=== PATIENT | female | born 1975 | race Hispanic/Latino ===

== ENCOUNTER 2021-11-30 08:53 | Emergency (ER) | payer BC ==
[2021-11-30] MEDS ORDERED: NA CHLORIDE 0.9% 1,000 ML ONE (10:01)
[2021-11-30] MEDS ORDERED: ONDANSETRON 4 MG/2 ML VIAL ONE (10:01)
[2021-11-30 10:06] LABS: Absolute Lymphocytes (CBC) 0.7 K/uL (0.7-4.9); Hematocrit 42.1 % (36.0-45.0); Lymphocytes % 20.5 % (15.3-44.8); MPV 8.5 fL (7.6-11.3); RBC Red Blood Cell Count 4.66 M/uL (3.86-4.86)
--- OUTSIDE RECORDS SUMMARY | 2021-11-30 10:06 | XMS REPORT | Continuity of Care Document ---
:[address] [facility] t Address [address] [place] [address] Care Team Providers Name Role Phone Jose CHEUNG Primary Care Physician Unavailable RADIOLOGY Attending Clinician Unavailable Radiology Attending Clinician Unavailable Uma Brandt Attending Clinician Unavailable Payers Payer Name Policy Type Policy Number Effective Date Expiration Date S ource Problems Condition Condition Condition Status Onset Resolution Last Treating Co mments Source Name Details Category Date Date Treatment Clinician Date No known No known Disease Unive rs active active ity of problems problems [facility] Allergies, Adverse Reactions, Alerts Allergy Allergy Status Severity Reaction(s) Onset Inactive Treating Comm ents Source Name Type Date Date Clinician NO KNOWN Drug Active Univers ALLERGIE Class ity of S [facility] Social History Social Habit Start Date Stop Date Quantity Comments Source Sex Assigned At [facility] Medical Branch Exposure to Not sure [facility] SARS-CoV-2 (event) Medica l Branch Tobacco use and 2018-01-28 2018-01-28 Never used [facility] exposure 00:00:00 00:00:00 [facility] [place] Smoking Status Start Date Stop Date Source Never smoker [facility] Medications Ordered Filled Start Stop Current Ordering Indication Dosage Frequency Signature Comments Components Source Medication Medication Date Date Medication? Clinician (SIG) Name Name TEMAZEPAM Yes Take by Univ ers (RESTORIL 4-28 mouth. ity of ORAL) 22:18: [address] SERTRALINE Yes Take by Uni vers HCL (ZOLOFT 4-28 mouth. ity of ORAL) 22:18: [place] 18 Medical Branch TEMAZEPAM Yes Take by [facility] ers (RESTORIL 4-28 mouth. ity of ORAL) 22:18: [place] [address] Medical Branch SERTRALINE Yes Take by Uni vers HCL (ZOLOFT 4-28 mouth. ity of ORAL) 22:18: [place] [address] Medical Branch TEMAZEPAM Yes Take by [facility] ers (RESTORIL 4-28 mouth. ity of ORAL) 22:18: [place] [address] Medical Branch SERTRALINE Yes Take by Uni vers HCL (ZOLOFT 4-28 mouth. ity of ORAL) 22:18: [place] [address] Medical Branch acetaminoph Yes [id number] 10/04 Univers en-codeine 4-28 tab Every ity of 300-30 mg 00:00: 4hrs as [place] tablet 00 needed for Medical pain or Branch cough requiring narcotic acetaminoph Yes [id number] 10/04 Univers en-codeine 4-28 tab Every ity of 300-30 mg 00:00: 4hrs as [place] tablet 00 needed for Medical pain or Branch cough requiring narcotic acetaminoph Yes [id number] 10/04 Univers en-codeine 4-28 tab Every ity of 300-30 mg 00:00: 4hrs as [place] tablet 00 needed for Medical pain or Branch cough requiring narcotic Procedures Procedure Date / Time Performing Clinician Source Performed BI ULTRASOUND BREAST 2020-10-28 21:54:20 Tammy Chaves [facility] COMPLETE RIGHT Medical Branch BI DIAGNOSTIC MAMMOGRAM 2020-10-28 21:00:51 Tammy Chaves [facility] RIGHT Medical Branch CONSENT/REFUSAL FOR 2020-10-28 20:30:04 [facility] DIAGNOSIS AND TREATMENT [facility] Medical Branch ASSIGNMENT OF BENEFITS 2020-10-28 20:29:51 Doctor Umair, [facility] Derma Medical Branch RUST PATIENT FINANCIAL 2020-09-09 15:39:57 Doctor Umair, [facility] POLICY Derma Medical Branch NO SHOW OR MISSED 2020-09-09 15:39:44 Doctor Umair, [facility] APPOINTMENT POLICY Derma Medical Bran h ACKNOWLEDGEMENT CONSENT/REFUSAL FOR 2020-09-09 15:39:32 Doctor Unassigned, Unive [facility] DIAGNOSIS AND TREATMENT Derma Medical Branch ASSIGNMENT OF BENEFITS 2020-09-09 15:39:18 [facility] Encounters Start End Encounter Admission Attending Care Care Encounter Source Date/Time Date/Time Type Type Clinicians Facility Department ID 2022-02-19 2022-02-19 Outpatient R RADIOLOGY [facility] [id number] Univers 08:00:00 08:00:00 [id number] ity of [facility] 2020-10-28 2020-10-28 [facility] Radiology RUST [id number] Univers 14:37:17 23:59:00 Encounter [place] [id number] ity of [place] [id number] [facility] [id number] [place] 806 Branch 2020-10-28 2020-10-28 [facility] Radiology RUST [id number] Univers 14:30:00 14:36:00 Encounter [place] [id number] ity of [place] [id number] [facility] [id number] [place] 800 Branch 2020-10-28 2020-10-28 Outpatient R RADIOLOGY [facility] [id number] Univers 14:30:00 14:30:00 [id number] ity of [facility] 2020-10-28 2020-10-28 Outpatient R RADIOLOGY [facility] [id number] Univers 00:00:00 00:00:00 ity of [facility] 2020-09-09 2020-09-09 Hospital Radiology RUST [id number] Univers 09:00:00 23:59:00 Encounter [place] [id number] ity of [place] [id number] [facility] [id number] [place] 800 Branch 2020-09-09 2020-09-09 Outpatient R RADIOLOGY [facility] [id number] Univers 09:00:00 09:00:00 [id number] ity of [facility] 2020-09-09 2020-09-09 Outpatient R RADIOLOGY [facility] [id number] Univers 00:00:00 00:00:00 ity of [facility] 2020-06-17 2020-06-17 Outpatient KEI Brandt RADI [id number] [facility] 09:15:00 09:15:00 Eligio [id number] [facility] Results Test Description Test Time Test Comments Results Result Sourc e Comments BI ULTRASOUND 2020-10-04 Examination:BI Univers ity of BREAST COMPLETE 6 DIAGNOSTIC MAMMOGRAM [facility] RIGHT 22:58:02 RIGHTBI ULTRASOUND Branch BREAST COMPLETE RIGHT History:Patient is 44 year old and is seen for: ?Other abnormal and inconclusive findings on diagnostic imaging of breast. Computer-aided detection (CAD) utilized. Comparisons: 09/09/2020 BI SELF-REFERRED SCREENING MAMMOGRAM BILATERAL Findings:BI DIAGNOSTIC MAMMOGRAM RIGHTThe right breast is heterogeneously dense, which may obscure small masses. There is an 11 mm oval mass with circumscribed margins seen in the lower inner quadrant of the right breast in the middle depth. The prepectoral silicone implant is seen. ?Silicone implant integrity is not fully evaluated on mammography alone. If there is a concern for an underlying silicone implant / vinicio-implant abnormality, breast MRI is the most sensitive exam for the evaluation of silicone implants BI ULTRASOUND BREAST COMPLETE RIGHTThere is an 11 mm x 9 mm x 5 mm benign cyst in the lower inner quadrant of the right breast at 5 o'clock in the middle depth, 7 cm from the nipple. The mass correlates with the prior mammogram finding. Additional benign cysts are also identified at 5 o'clock, 5 cm, 3 o'clock, 5 cm, ?lower outer quadrant, and upper inner quadrant. There is no axillary lymphadenopathy. Impression:RIGHT BREAST: Benign right breast cysts. ?The largest one correlates with the mammographic finding. Recommendation:Annua l mammographic follow-up - Bilateral BI-RADS Category: Right 2 - Benign ?These findings and recommendations were discussed with the patient at the conclusion of today's examination. BI DIAGNOSTIC 2020-10-04 Examination:BI Univers ity of MAMMOGRAM RIGHT 6 DIAGNOSTIC MAMMOGRAM [facility] 22:58:01 RIGHTBI ULTRASOUND Branch BREAST COMPLETE RIGHT History:Patient is 44 year old and is seen for: ?Other abnormal and inconclusive findings on diagnostic imaging of breast. Computer-aided detection (CAD) utilized. Comparisons: 09/09/2020 BI SELF-REFERRED SCREENING MAMMOGRAM BILATERAL Findings:BI DIAGNOSTIC MAMMOGRAM RIGHTThe right breast is heterogeneously dense, which may obscure small masses. There is an 11 mm oval mass with circumscribed margins seen in the lower inner quadrant of the right breast in the middle depth. The prepectoral silicone implant is seen. ?Silicone implant integrity is not fully evaluated on mammography alone. If there is a concern for an underlying silicone implant / vinicio-implant abnormality, breast MRI is the most sensitive exam for the evaluation of silicone implants BI ULTRASOUND BREAST COMPLETE RIGHTThere is an 11 mm x 9 mm x 5 mm benign cyst in the lower inner quadrant of the right breast at 5 o'clock in the middle depth, 7 cm from the nipple. The mass correlates with the prior mammogram finding. Additional benign cysts are also identified at 5 o'clock, 5 cm, 3 o'clock, 5 cm, ?lower outer quadrant, and upper inner quadrant. There is no axillary lymphadenopathy. Impression:RIGHT BREAST: Benign right breast cysts. ?The largest one correlates with the mammographic finding. Recommendation:Annua l mammographic follow-up - Bilateral BI-RADS Category: Right 2 - Benign ?These findings and recommendations were discussed with the patient at the conclusion of today's examination. - MRI C-SPINE 2020-06-03 Patient Name: W/O CONT CB CARDENAS 10:27:00 Unit No: [id number] EXAMS: CPT CODE: [id number] MRI C-SPINE W/O CONT [id number] MRI OF THE CERVICAL SPINE: DIAGNOSIS: 1. At C2-3, disc desiccation. No central canal or foraminal stenosis. 2. At C3-4, disc desiccation. No central canal or foraminal stenosis. 3. At C4-5, mild disc degeneration. No central canal or foraminal stenosis. 4. At C5-6,mild disc degeneration. No central canal or foraminal stenosis. 5. At C6-7, no disc bulge or herniation. No central canal or foraminal stenosis. 6. At C7-T1, no disc bulge or herniation. No central canal or foraminal stenosis. 7. There is loss of cervical lordosis. COMMENT: COMPARISON: No prior exams available. Sagittal T1, T2 and STIR and axial T2 and gradient-echo sequences are obtained of the cervical spine. Cervical vertebrae are within normal limits in signal. The findings are as above. at 1027 Reported and signed by: Michelle Gregg MD CC: Eligio Brandt MD Technologist: Jose Dickens(R) Transcribed D/ (1027) [facility] NAME: CB URBINA [address] [place] [address] PHYS: NIMISHA CasasEligio renae : 1975 AGE: 44 SEX: F [place] [address] LOC: Y.MRI PHONE #: [phone] EXAM DATE: 06/17/2020 STATUS: REG CLI FAX #: [phone] RAD #: D/C DT PAGE 1 Signed Report Patient Name: CB URBINA Unit No: [id number] EXAMS: CPT CODE: [id number] MRI C-SPINE W/O CONT [id number] <Continued> Orig Print D/T: S: 06/17/2020 (1030) [facility] NAME: CB URBINA [address] [place] [address] PHYS: NIMISHA CasasuckeyEligio : 1975 AGE: 44 SEX: F [place] [address] LOC: Y.MRI PHONE #: [phone] EXAM DATE: 06/17/2020 STATUS: REG CLI FAX #: [phone] RAD #: D/C DT PAGE 2 Signed Report
[2021-11-30 10:28] LABS: Albumin 3.6 g/dL (3.4-5.0); Bilirubin Direct 0.1 mg/dL (0-0.2); Bilirubin Total 0.4 mg/dL (0.2-1.0); Potassium 3.3 mmol/L (3.5-5.1); Protein, Total 7.7 g/dL (6.4-8.2)
--- NOTE | 2021-11-30 11:39 | RAD REPORT ---
EXAM DESCRIPTION: CTAbdomen Pelvis W Contrast - 11/30/2021 11:10 am CLINICAL HISTORY: ABD PAIN COMPARISON: No comparisons TECHNIQUE: CT of the abdomen and pelvis was performed. All CT scans are performed using dose optimization technique as appropriate and may include automated exposure control or mA/KV adjustment according to patient size. FINDINGS: Lower chest: No acute abnormality. Breast prostheses. Liver: No acute abnormality or suspicious lesions. Biliary: No biliary ductal dilatation. Too small to characterize liver lesions which are likely benig n. Stomach: No significant focal abnormality. Duodenum: No significant focal abnormality. Pancreas: No significant abnormality. Spleen: No significant abnormality. Adrenal: No suspicious lesions. Kidney/ureter: No hydronephrosis. Punctate bilateral nephrolithiasis. Retroperitoneum: No retroperitoneal adenopathy. Vascular: No aneurysm. Bowel: Fluid within the colon.. Normal appendix. Peritoneum: No ascites or free air. Bladder: Grossly unremarkable. Reproductive: No adnexal masses. Bones: No acute fracture. Other: n/a IMPRESSION: No acute intra-abdominal or pelvic finding. Nonspecific fluid within the colon which cou ld represent diarrheal disease. No bowel obstruction. Normal appendix.
--- NOTE | 2021-11-30 11:54 | EDPHYS ---
Physician Documentation [facility] Name: Brenda Rhodaes Age: 46 yrs Sex: Female : 1975 Arrival Date: 11/30/2021 Time: 08:55 Bed 6 Private MD: Paco Lyon V ED Physician Scott Vásquez HPI: 11/30 09:31 This 46 yrs old Female presents to ER via Ambulatory with complaints of jmm Nausea/Vomiting/Diarrhea. 09:31 The patient presents to the emergency department with nausea, vomiting, diarrhea, jmm abdominal pain. Onset: The symptoms/episode began/occurred gradually, 3 day(s) ago. Possible causes: unknown. The symptoms are aggravated by nothing. The symptoms are alleviated by nothing. Associated signs and symptoms: Pertinent positives: abdominal pain, diarrhea, vomiting. It is unknown whether or not the patient has had similar symptoms in the past. Historical: - Allergies: 09:04 No Known Allergies; jh6 - PMHx: 09:04 None; [facility] - Immunization history:: Adult Immunizations up to date, Client reports receiving the 2nd dose of the Covid vaccine. - Social history:: Smoking status: Patient denies any tobacco usage or history of. ROS: 09:31 Constitutional: Positive for body aches. jmm 09:31 Respiratory: Positive for cough. 09:31 Abdomen/GI: Positive for abdominal pain, nausea and vomiting, diarrhea. 09:31 All other systems are negative. Exam: 09:31 Constitutional: This is a well developed, well nourished patient who is awake, alert, jmm and in no acute distress. Head/Face: atraumatic. Eyes: EOMI, no conjunctival erythema appreciated ENT: Moist Mucus Membranes Neck: Trachea midline, Supple Chest/axilla: Normal chest wall appearance and motion. Cardiovascular: Regular rate and rhythm. No edema appreciated Respiratory: Normal respirations, no respiratory distress appreciated 09:31 Back: Normal ROM Skin: General appearance color normal MS/ Extremity: Moves all extremities, no obvious deformities appreciated, no edema noted to the lower extremities Neuro: Awake and alert Psych: Behavior is normal, Mood is normal, Patient is cooperative and pleasant 09:31 Abdomen/GI: Inspection: abdomen appears normal, Bowel sounds: normal, Palpation: soft, mild abdominal tenderness, in the right upper quadrant, left upper quadrant, right lower quadrant and left lower quadrant. Vital Signs: 09:00 BP 97 / 67; Pulse 106; Resp 18; Temp 98.6(O); Pulse Ox 100% ; Weight 59.42 kg; Height 5 [facility] ft. 1 in. (154.94 cm); Pain 7/10; 09:19 BP 102 / 71; Resp 18; Temp 98.6(O); ke1 11:21 BP 124 / 77; Resp 18; ke1 09:00 Body Mass Index 24.75 (59.42 kg, 154.94 cm) [facility] MDM: 09:10 Patient medically screened. [place] 11:51 Data reviewed: vital signs, nurses notes. Counseling: I had a detailed discussion with nette the patient and/or guardian regarding: the historical points, exam findings, and any diagnostic results supporting the discharge/admit diagnosis, lab results, radiology results, the need for outpatient follow up, to return to the emergency department if symptoms worsen or persist or if there are any questions or concerns that arise at home. ED course: Patient is alert and nontoxic in appearance in the ED. CT was negative for no acute intra abdominal process. Patient advised follow-up PCP and otherwise given strict return precautions. Patient understood agrees plan of care.. 11/30 09:30 Order name: Basic Metabolic Panel; Complete Time: 10:41 [facility] 11/30 09:30 Order name: CBC with Diff; Complete Time: 10:20 [facility] 11/30 09:30 Order name: Hepatic Function; Complete Time: 10:41 [facility] 11/30 09:30 Order name: Lipase; Complete Time: 10:41 [facility] 11/30 10:46 Order name: CT Abd/Pelvis - IV Contrast Only; Complete Time: 11:46 [facility] 11/30 09:30 Order name: IV Saline Lock; Complete Time: 09:53 [facility] 11/30 09:30 Order name: Labs collected and sent; Complete Time: 09:53 [facility] Administered Medications: 10:03 Drug: NS 0.9% 1000 ml Route: IV; Rate: 1 bolus; Site: right antecubital; ke1 10:03 Drug: Zofran (Ondansetron) 4 mg Route: IVP; Site: right antecubital; ke1 11:55 Drug: Bentyl (dicyclomine) 20 mg Route: PO; ke1 Disposition Summary: 02/28/22 11:53 Discharge Ordered Location: Home [facility] Condition: Stable jm Diagnosis - Vomiting jmm - Diarrhea, unspecified jmm Followup: jmm - With: Private Physician - When: 2 - 3 days - Reason: Recheck today's complaints, Continuance of care, Re-evaluation by your physician Discharge Instructions: - Discharge Summary Sheet [facility] - Food Choices to Help Relieve Diarrhea, Adult jm - Diarrhea, Adult jm Forms: - Medication Reconciliation Form [facility] - Thank You Letter [facility] - Antibiotic Education [facility] - Prescription Opioid Use [facility] Prescriptions: - ondansetron 4 mg Oral tablet,disintegrating - place 1 tablet by TRANSLINGUAL route every 4-6 hours; 20 tablet; Refills: 0, [facility] Product Selection Permitted - dicyclomine 20 mg Oral Tablet - take 1 tablet by ORAL route 4 times per day; 30 tablet; Refills: 0, Product [facility] Selection Permitted Signatures: Dispatcher [employer] Scott Medellin MD MD cha Mickail, Joel, PA PA Tammy Zapata, RN RN jh6 Sangeetha Carter RN RN ke1
--- NOTE | 2021-11-30 11:54 | ER ---
Nurse's Notes [facility] Name: Brenda Rhoades Age: 46 yrs Sex: Female : 1975 Arrival Date: 11/30/2021 Time: 08:55 Bed 6 Private MD: Paco Lyon V Diagnosis: Vomiting;Diarrhea, unspecified Presentation: 11/30 09:00 Chief complaint: Patient states: N/V/D x 3 days. vomited x 4 in last 24 hrs. no fever. [facility] Coronavirus screen: Vaccine status: Patient reports receiving the 2nd dose of the covid vaccine. Client denies travel out of the [place] in the last 14 days. At this time, the client does not indicate any symptoms associated with coronavirus-19. Ebola Screen: Patient denies exposure to infectious person. Patient denies travel to an Ebola-affected area in the 21 days before illness onset. Initial Sepsis Screen: Does the patient meet any 2 criteria? HR > 90 bpm. Does the patient have a suspected source of infection? No. Patient's initial sepsis screen is negative. Risk Assessment: Do you want to hurt yourself or someone else? Patient reports no desire to harm self or others. Onset of symptoms was November 28, 2021. 09:00 Method Of Arrival: Ambulatory [facility] 09:00 Acuity: NATHALIE [address] [facility] Triage Assessment: 09:04 General: Appears in no apparent distress. Behavior is calm, cooperative. Pain: [facility] Complains of pain in abdomen Pain currently is 4 out of 10 on a pain scale. Quality of pain is described as crampy, Pain began 2-3 days ago. Is intermittent, Aggravated by eating, drinking. GI: Abd is soft and non tender X 4 quads. Reports lower abdominal pain, upper abdominal pain, diarrhea, nausea, tolerance of fluids, tolerance of food, vomiting. Historical: - Allergies: 09:04 No Known Allergies; [facility] - PMHx: 09:04 None; [facility] - Immunization history:: Adult Immunizations up to date, Client reports receiving the 2nd dose of the Covid vaccine. - Social history:: Smoking status: Patient denies any tobacco usage or history of. Screenin:24 Abuse screen: Denies threats or abuse. Nutritional screening: No deficits noted. ke1 Tuberculosis screening: No symptoms or risk factors identified. Fall Risk None identified. Assessment: 09:16 General: Appears uncomfortable, Behavior is appropriate for age. Pain: Complains of ke1 pain in abdomen lower Pain currently is 7 out of 10 on a pain scale. Neuro: Level of Consciousness is awake, alert, obeys commands, Oriented to person, place, time, situation. Cardiovascular: Heart tones S1 S2 present Capillary refill < 3 seconds Patient's skin is warm and dry. Pulses are all present. Respiratory: Airway is patent Breath sounds are clear bilaterally. GI: Abdomen is flat, Bowel sounds present X 4 quads. Abd is soft Abdomen is tender to palpation in right lower quadrant and left lower quadrant. :. : No deficits noted. Derm: No deficits noted. Musculoskeletal: No deficits noted. 11:22 Pain: Complains of pain in left lower quadrant and right lower quadrant Pain currently ke1 is 3 out of 10 on a pain scale. level that patient reports is acceptable is 4 out of 10 on a pain scale. Vital Signs: 09:00 BP 97 / 67; Pulse 106; Resp 18; Temp 98.6(O); Pulse Ox 100% ; Weight 59.42 kg; Height 5 6 ft. 1 in. (154.94 cm); Pain 7/10; 09:19 BP 102 / 71; Resp 18; Temp 98.6(O); ke1 11:21 BP 124 / 77; Resp 18; ke1 09:00 Body Mass Index 24.75 (59.42 kg, 154.94 cm) [facility] ED Course: 08:55 Patient arrived in ED. am2 08:55 Paco Lyon MD is Private Physician. am2 08:57 Al Lawton PA is PHCP. jmm 08:57 Scott Vásquez MD is Attending Physician. m 09:04 Triage completed. jh6 09:05 Arm band placed on left wrist. jh6 09:09 Sangeetha Carter, ENRIQUE is Primary Nurse. ke1 09:53 Inserted saline lock: 20 gauge in right antecubital area, using aseptic technique. ke1 10:00 Patient has correct armband on for positive identification. ke1 11:10 CT Abd/Pelvis - IV Contrast Only In Process Unspecified. EDMS 12:24 No provider procedures requiring assistance completed. IV discontinued. ke1 Administered Medications: 10:03 Drug: NS 0.9% 1000 ml Route: IV; Rate: 1 bolus; Site: right antecubital; ke1 10:03 Drug: Zofran (Ondansetron) 4 mg Route: IVP; Site: right antecubital; ke1 11:55 Drug: Bentyl (dicyclomine) 20 mg Route: PO; ke1 Outcome: 11:53 Discharge ordered by MD. perdue 12:25 Discharged to home ambulatory. ke1 12:25 Condition: good 12:25 Discharge instructions given to patient. 12:26 Patient left the ED. ke1 Signatures: Dispatcher [employer] EDMS Al Lawton PA PA jmm Moreno, Amanda am2 Hastedt, Jennifer RN RN jh6 Sangeetha Carter RN RN ke1
[2021-11-30] MEDS ORDERED: DICYCLOMINE HCL 10 MG CAP ONE (11:58)
[2021-11-30 12:35] VITALS: TEMP 98.6; O2SAT 100
[2021-11-30 12:37] VITALS: BP 124/77
== END 2021-11-30 12:26 | disposition home or self-care (01) ==
LOC: ER 08:53
DX: R11.2 Nausea with vomiting, unspecified (principal); R19.7 Diarrhea, unspecified
CPT/HCPCS: 85025; 80048; 36415; 80076; 83690; 74177; Q9967; J7030; J2405; 96374; 99283